=== PATIENT | female | born 1985 | race Caucasian/White ===

== ENCOUNTER 2019-11-06 23:56 | Emergency (ER) | payer SELFPAY ==
[2019-11-07 00:51] LABS: #Eosinphils 0.1 thou/uL (0.0-0.7); #Lymphocytes 2.3 thou/uL (1.20-3.40); #Monocytes 0.6 thou/uL (0.11-0.59); #Neutrophils 6.5 thou/uL (1.40-6.50); %Basophils 0.3 % (0.0-1.0); %Eosinophils 1.2 % (0.0-10.0); %Lymphocytes 24.5 % (21.0-51.0); %Monocytes 6.2 % (0.0-10.0); %Neutrophils 67.8 % (42.0-75.0); Hemoglobin 13.3 g/dL (12.0-16.0); Mean Corpuscular HGB CONC 33.9 g/dL (32.0-36.0); Mean Corpuscular Hemoglobin 26.5 pg (27.0-31.0); Mean Corpuscular Volume 78.2 fL (78.0-98.0); Mean Platelet Volume 8.4 fL (7.4-10.4); Platelet Count 350 thou/uL (130-400); RBC Distribution Width 14.4 % (11.5-14.5); White Blood Cell (WBC) Count 9.5 thou/uL (4.8-10.8)
[2019-11-07] MEDS ORDERED: Ibuprofen 200 MG TAB ONE (01:10)
[2019-11-07 01:12] LABS: ALT (SGPT) 15 U/L (8-55); AST (SGOT) 17 U/L (5-34); Albumin 4.7 g/dL (3.5-5.0); Alkaline Phosphatase 72 U/L (40-110); Anion Gap 19 mmol/L (10-20); BUN (Urea Nitrogen) 16 mg/dL (7.0-18.7); Bilirubin, Total 0.7 mg/dL (0.2-1.2); Calc. Creatinine Clearance 0 mL/min (70-130); Calcium 9.5 mg/dL (7.8-10.44); Carbon Dioxide 21 mmol/L (22-29); Chloride 103 mmol/L (98-107); Estimated GFR-MDRD 78; Glucose 156 mg/dL (70-105); Protein, Total 8.7 g/dL (6.0-8.3); Sodium 140 mmol/L (136-145)
[2019-11-07 01:17] LABS: Potassium 2.7 mmol/L (3.5-5.1)
[2019-11-07] MEDS ORDERED: Potassium Chloride 20 MEQ TAB ONE (01:18)
[2019-11-07 03:07] LABS: Bacteria/HPF 4+ HPF (None Seen); Bilirubin Negative (Negative); Blood, Urine 1+ (Negative); Clarity Turbid (Clear); Glucose, Urine (Dipstick) Normal (Negative); Ketone, Urine Trace mg/dL (Negative); Leukocyte 500 Leu/uL (Negative); Nitrite 2+ (Negative); Protein, Urine (Dipstick) 50 mg/dL (Neg-Trace); Specific Gravity, Urine 1.022 (1.002-1.036); Squamous Epithelial 0-3 HPF (0-3); Urobilinogen Normal mg/dL (Less than 2); WBC/HPF Greater than 50 HPF (0-3)
[2019-11-07 03:08] LABS: Pregnancy Test - Urine (BHCG) Negative (Negative); Pregu Control Background? CLEAR/WHITE (CLR/WHITE); Pregu Control Bar Appear? YES (CONTROL BAR); Specific Gravity 1.022 (1.002-1.036)
[2019-11-07 03:18] LABS: Amphetamine Detected (NotDetected); Barbiturates Screen Not Detected (NotDetected); Benzodiazepine Screen Not Detected (NotDetected); Cocaine Metabolite Screen Not Detected (NotDetected); Medtox Control Line Valid? VALID (VALID); Medtox Reader # READER 4; Methadone Not Detected (NotDetected); Methamphetamine Detected (NotDetected); Opiate Screen Not Detected (NotDetected); Oxycodone Screen Not Detected (NotDetected); Phencyclidine (PCP) Not Detected (NotDetected); THC/Cannabinoid Screen Not Detected (NotDetected); Tricyclic Screen Not Detected (NotDetected)
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
== END 2019-11-07 03:55 | disposition home or self-care (01) ==
LOC: ERS 23:56
DX: S00.83XA Contusion of other part of head, initial encounter (principal); K02.9 Dental caries, unspecified; F15.10 Other stimulant abuse, uncomplicated; F90.9 Attention-deficit hyperactivity disorder, unspecified type; F41.9 Anxiety disorder, unspecified; I10 Essential (primary) hypertension; F17.210 Nicotine dependence, cigarettes, uncomplicated; W50.0XXA Accidental hit or strike by another person, initial encounter
CPT/HCPCS: 36416; 70450; 70486; 80053; 80306; 81003; 81015; 81025; 85025; 93005; 96360; 96361

== ENCOUNTER 2020-04-11 08:12 | Emergency (ER) | payer OTHER, SELFPAY ==
--- NOTE | 2020-04-11 09:33 | RAD ---
PORTABLE CHEST 1 VIEW: Date: 04/11/2020 Time: 0928 hours HISTORY: Cough and shortness of breath. COMPARISON: 06/06/2018. FINDINGS: The heart size is normal. The lungs are expanded without lobar consolidation, pneumothoraces, or pleu ral effusions. IMPRESSION: No acute process. POS: OFF
[2020-04-11] MEDS ORDERED: Dexamethasone 4 mg/ml Vial ONE (09:55)
[2020-04-11] MEDS ORDERED: PROVENTIL INHALER 6.7 G (200 INHALATIONS) ONE (09:55)
[2020-04-11] MEDS ORDERED: Albuterol 200 PUFF (6.7GM INHALER) ONE ×2 (09:57→10:13)
[2020-04-11] MEDS ORDERED: Dexamethasone 10 MG/ML VIAL ONE (10:00)
[2020-04-11 11:33] LABS: SARS-CoV-2 NAA Rapid Test DETECTED (NotDetected)
== END 2020-04-11 11:22 | disposition home or self-care (01) ==
LOC: ERS 08:12
DX: U07.1 COVID-19 (principal); R03.0 Elevated blood-pressure reading, without diagnosis of hypertension; I10 Essential (primary) hypertension; F17.210 Nicotine dependence, cigarettes, uncomplicated
CPT/HCPCS: 0240U; 71045; 93005; J1100